=== PATIENT | male | born 1985 | race Caucasian/White ===

== ENCOUNTER 2022-11-21 20:51 | Emergency (ER) | payer OTHER, SELFPAY ==
[2022-11-21 21:01] VITALS: BP 128/79; PULSE 94; RESP 18; TEMP 36.3; O2SAT 97; BMI 47.0
--- NOTE | 2022-11-21 21:03 | DI.RAD.S_ITS ---
PROCEDURE: XR FINGER LT MIN 2V INDICATIONS: Left hand, 3rd digit injury TECHNIQUE: AP hand, 2 views of the 3rd finger(s) acquired. COMPARISON: None. FINDINGS: Bones: No fractures or dislocations. No suspicious bony lesions. Soft tissues: No suspicious soft tissue calcifications. IMPRESSION: No visualized acute fracture or dislocation. However, if clinical concern and/or pain persist, short interval imaging followup in 7-10 days is recommended, as occult injury cannot be definitively excluded. Dictated by: Nayeli Ann M.D. on 11/21/2022 at 22:18 Approved by: Nayeli Ann M.D. on 11/21/2022 at 22:18
--- NOTE | 2022-11-21 21:14 | ED.UPPEXIN ---
HPI - Extremity Injury (Upper) General Chief Complaint: Extremity Injury, Upper Stated Complaint: lt middle finger injury Time Seen by Provider: 11/21/22 21:01 Source: patient Mode of arrival: Ambulatory History of Present Illness HPI narrative: 37-year-old male without chronic medical history presents with significant other and a chief complaint of an accidental injury to the middle finger on his left hand just prior to arrival. He states he was rough-housing with his dog and does not know exactly what happened but felt pain and now has bruising and discomfort in his middle finger, mainly at the tip. He denies any numbness or tingling. He is otherwise well and free of complaint Related Data Allergies Allergy/AdvReac Type Severity Reaction Status Date / Time carbamazepine [From TEGRETOL] Allergy Mild RASH Unverified 09/03/17 12:21 hydrocodone [HYDROCODONE] Allergy Mild THROAT Unverified 09/03/17 12:21 SWELLS SHUT iodine Allergy Unknown Unverified 09/03/17 12:21 Penicillins Allergy Unknown Unverified 09/03/17 12:21 venom-honey bee Allergy Unknown Unverified 09/03/17 12:21 [bee venom (honey bee)] Review of Systems Review of Systems Narrative: GENERAL: Denies chills, fatigue, malaise, fever, sweats. HEENT: Denies sinus pain, ear pain, sore throat, difficulty swallowing, dizziness. RESPIRATORY: Denies dyspnea, cough, wheezing, hemoptysis, sputum. CARDIOVASCULAR: Denies chest pain, palpitations, orthopnea, edema, GASTROINTESTINAL: Denies nausea, vomiting, abdominal pain, diarrhea, constipation, melena. : Denies dysuria, frequency, incontinence, hematuria, urinary retention. MUSCULOSKELETAL: See HPI SKIN: Denies rash, skin lesions, or other NEUROLOGIC: Denies weakness, headache, numbness, change in speech, confusion, seizures, incoordination. PSYCHIATRIC: No concerning psychosocial issues. 12 point review of systems is negative except for those stated above Exam Narrative Exam Narrative: GEN: AOx3 and in mild distress EYES: Pupils are equal, round, and reactive to light and accommodation. Extraoccular muscles are intact bilaterally. There is no subconjunctival hemorrhage or exudate. CHEST: Lungs are clear to auscultation bilaterally and free of wheezes, rales, or rhonchi. Heart rate is regular rhythm, there are no murmurs, clicks, rubs, or gallops. There is no chest wall tenderness. ABD: Abdomen is soft and nontender. There is no guarding or rebound. Bowel sounds are normal in all 4 quadrants. There is no mass or organomegaly. EXT: Left middle finger with moderate swelling and ecchymosis, decreased range of motion secondary to pain, closed, isolated and neurovascularly intact SKIN: Warm, pink, and dry. No erythema or rash Initial Vital Signs Initial Vital Signs: Vital Signs Temperature 97.3 F L 11/21/22 21:01 Pulse Rate 94 H 11/21/22 21:01 Respiratory Rate 18 11/21/22 21:01 Blood Pressure 128/79 11/21/22 21:01 Pulse Oximetry 97 11/21/22 21:01 Oxygen Delivery Method Room Air 11/21/22 21:01 Course Orders Ordered: ED Orders 11/21/22 21:03 XR finger LT min 2V Stat Vital Signs Vital signs: Vital Signs - 8 hr 11/21/22 21:01 Temperature 97.3 F L Pulse Rate 94 H Respiratory Rate 18 Blood Pressure 128/79 Pulse Oximetry 97 Oxygen Delivery Method Room Air Discharge Plan Departure Patient Disposition: Home Clinical Impression: Sprain of finger of left hand Instructions: DI for Finger Sprain Activity Restrictions/Additional Instructions: *You have been diagnosed with [left middle finger sprain with questionable tendon injury. No obvious fracture or dislocation on imaging.] *What to do: *Please continue to take your regular medications as directed. [ ] New medication prescriptions sent to your pharmacy: [ ] [ ] New medication written as a paper prescription [ ] No new medications given *Please follow up with your primary care provider in 2-3 days, call for an appointment. Let them know you were seen in the Emergency Department and that we ask that you be seen in follow up. We will electronically transmit a record of today's note if your PCP is in our system * as we discussed I have included the contact information for Dr. Herrera, he is the orthopedist on-call and a specialist with hands. It would certainly be reasonable to follow-up with his office. Please call, let them know you were seen in emergency department and we would like you seen in follow-up *If you do not have a primary care provider please contact the [facility] Resource line at [phone]. They will ask some questions about your medical history and help get you set up with a doctor in the community. *Return to Emergency Department if you should have any new, worsening or concerning symptoms, such as [fever greater than 101 F, shaking chills, worsening pain, persistent vomiting or other bothersome symptoms] Referrals: Christiano Herrera MD [Physician] - Stand Alone Forms: Patient Portal/API
[2022-11-21 21:50] VITALS: BP 141/79; PULSE 86; RESP 18; O2SAT 97
== END 2022-11-21 21:50 | disposition home or self-care (01) ==
PROVIDERS: Emergency Provider Emergency Medicine
DX: S63.613A Unspecified sprain of left middle finger, initial encounter (principal); X58.XXXA Exposure to other specified factors, initial encounter
CPT/HCPCS: 29130; 73140; 99281; 99283

== ENCOUNTER 2023-03-30 10:56 | Emergency (ER) | payer OTHER, MEDICAID, SELFPAY ==
[2023-03-30 11:10] VITALS: BP 144/68; PULSE 91; RESP 18; TEMP 37.2; O2SAT 99; BMI 48.4
--- NOTE | 2023-03-30 11:15 | DI.RAD.S_ITS ---
PROCEDURE: XR CHEST 1V INDICATIONS: cough, SOB TECHNIQUE: One view of the chest was acquired. COMPARISON: None. FINDINGS: Surgical changes and devices: None. Lungs and pleura: Lungs are clear. No pleural effusions or pneumothorax. Mediastinum: Mediastinal contours appear normal. Heart size is normal. Bones and chest wall: No suspicious bony lesions. Overlying soft tissues appear unremarkable. IMPRESSION: Portable chest within normal limits for age. Dictated by: Mag Medeiros M.D. on 03/30/2023 at 11:53 Approved by: Mag Medeiros M.D. on 03/30/2023 at 11:53
--- NOTE | 2023-03-30 13:07 | ED_ITS ---
HPI - URI/Sore Throat <Kraig Olmos PA-C - Last Filed: 03/30/23 14:31> General Chief Complaint: Upper Respiratory Symptoms Stated Complaint: trouble breathing, light headed, upper resp Time Seen by Provider: 03/30/23 13:06 Source: patient Mode of arrival: Ambulatory History of Present Illness HPI Narrative: This is a 37-year-old male presents emergency department due to increased shortness of breath over the last 6 days. He states that he is had a congested nose but denies any fevers, nausea, vomiting. States he is also been coughing up some yellow phlegm. Patient states that he just started smoking about 2 months ago. Denies any chest pain Related Data Previous Rx's Medication Instructions Recorded nebulizer and compressor #1 ea 03/30/23 prednisone 20 mg tablet 20 mg PO BID 5 days #10 tabs 03/30/23 prednisone 20 mg tablet 40 mg (2 x 20 mg) PO DAILY #10 tabs 03/30/23 sodium chloride 3 % for 4 ml inhalation Q8H PRN secretions 03/30/23 nebulization (NebuSal) #120 mL Allergies Allergy/AdvReac Type Severity Reaction Status Date / Time carbamazepine [From TEGRETOL] Allergy Mild RASH Verified 03/30/23 11:14 hydrocodone [HYDROCODONE] Allergy Mild THROAT Verified 03/30/23 11:14 SWELLS SHUT iodine Allergy Unknown Verified 03/30/23 11:14 Penicillins Allergy Unknown Verified 03/30/23 11:14 venom-honey bee Allergy Unknown Verified 03/30/23 11:14 [bee venom (honey bee)] Review of Systems <Kraig Olmos PA-C - Last Filed: 03/30/23 14:31> Review of Systems Narrative: GENERAL: Denies chills, fatigue, malaise, fever, sweats. HEENT: Reports sinus congestion Denies sinus pain, ear pain, sore throat, difficulty swallowing, dizziness. RESPIRATORY: Reports shortness of breath, cough, denies wheezing, hemoptysis, . CARDIOVASCULAR: Denies chest pain, palpitations, orthopnea, edema, GASTROINTESTINAL: Denies nausea, vomiting, abdominal pain, diarrhea, constipation, melena. : Denies dysuria, frequency, incontinence, hematuria, urinary retention. MUSCULOSKELETAL: denies weakness, joint pain, or bony pain SKIN: Denies rash, skin lesions, or other NEUROLOGIC: Denies weakness, headache, numbness, change in speech, confusion, seizures, incoordination. PSYCHIATRIC: No concerning psychosocial issues. 12 point review of systems is negative except for those stated above Patient History <Kraig Olmos PA-C - Last Filed: 03/30/23 14:31> Social History Smoking Status: Current every day smoker Smoking Status: Current every day smoker tobacco type: cigarettes alcohol intake frequency: 0-2 drinks per day Substance Use Type: does not use Exam <Kraig Olmos PA-C - Last Filed: 03/30/23 14:31> Narrative Exam Narrative: GENERAL: Well-developed patient, in mild distress. HEAD: Atraumatic. Normocephalic. EYES: Pupils equal round and reactive. Extraocular motions intact. No scleral icterus. No injection or drainage. ENT: Nose without bleeding, purulent drainage. Throat without erythema, tonsillar hypertrophy or exudate. Airway patent. NECK: Trachea midline. Non tender CARDIOVASCULAR: Regular rate and rhythm without murmurs, gallops, or rubs. RESPIRATORY: Faint wheezing to bilateral lung augustin GASTROINTESTINAL: Abdomen soft, non-tender, nondistended. EXTREMITIES: No edema or joint tenderness. BACK: Nontender without deformity or crepitance. No flank tenderness. NEURO: AOx3. SKIN: No rash or erythema of visible areas Initial Vital Signs Initial Vital Signs: Vital Signs Temperature 98.9 F 03/30/23 11:10 Pulse Rate 91 H 03/30/23 11:10 Respiratory Rate 18 03/30/23 11:10 Blood Pressure 144/68 H 03/30/23 11:10 Pulse Oximetry 99 03/30/23 11:10 Oxygen Delivery Method Room Air 03/30/23 11:10 <Princess Ferguson DO - Last Filed: 03/31/23 07:33> Initial Vital Signs Initial Vital Signs: Vital Signs Temperature 98.9 F 03/30/23 11:10 Pulse Rate 91 H 03/30/23 11:10 Respiratory Rate 18 03/30/23 11:10 Blood Pressure 144/68 H 03/30/23 11:10 Pulse Oximetry 99 03/30/23 11:10 Oxygen Delivery Method Room Air 03/30/23 11:10 Course <Kraig Olmos PA-C - Last Filed: 03/30/23 14:31> Orders Ordered: ED Orders 03/30/23 11:15 XR chest 1V Stat 03/30/23 13:33 Covid-19 + FLU A/B + RSV - PCR Stat Vital Signs Vital signs: Vital Signs - 8 hr 03/30/23 11:10 03/30/23 13:28 Temperature 98.9 F Pulse Rate 91 H 88 Respiratory Rate 18 18 Blood Pressure 144/68 H 136/67 Pulse Oximetry 99 97 Oxygen Delivery Method Room Air Room Air <Princess Ferguson DO - Last Filed: 03/31/23 07:33> Orders Ordered: ED Orders 03/30/23 11:15 XR chest 1V Stat 03/30/23 13:33 Covid-19 + FLU A/B + RSV - PCR Stat Vital Signs Vital signs: Vital Signs - 8 hr 03/30/23 11:10 03/30/23 13:28 Temperature 98.9 F Pulse Rate 91 H 88 Respiratory Rate 18 18 Blood Pressure 144/68 H 136/67 Pulse Oximetry 99 97 Oxygen Delivery Method Room Air Room Air MDM - URI/Sore Throat <Kraig Olmos PA-C - Last Filed: 03/30/23 14:31> Lab Data Labs: Lab Results 03/30/23 Range/Units 13:33 SARS-CoV-2 (PCR) Positive H (Negative) Influenza A (RT-PCR) Flu a negative (NEGATIVE) Influenza B (RT-PCR) Flu b negative (NEGATIVE) RSV (PCR) Negative (Negative) Imaging Data Chest x-ray: Radiologist's Impression: [place] [address] XRay Report Signed Patient: Erasmo Vega MR#: [id number] : 1985 Acct:[id number] Age/Sex: 37 / M Date of Service: 03/30/23 Loc: ED Accession Number: [id number] Procedure: XR chest 1V Ordering Provider: Princess Ferguson D.O. PROCEDURE: XR CHEST 1V INDICATIONS: cough, SOB TECHNIQUE: One view of the chest was acquired. COMPARISON: None. FINDINGS: Surgical changes and devices: None. Lungs and pleura: Lungs are clear. No pleural effusions or pneumothorax. Mediastinum: Mediastinal contours appear normal. Heart size is normal. Bones and chest wall: No suspicious bony lesions. Overlying soft tissues appear unremarkable. IMPRESSION: Portable chest within normal limits for age. Dictated by: Mag Medeiros M.D. on 03/30/2023 at 11:53 Approved by: Mag Medeiros M.D. on 03/30/2023 at 11:53 MDM Narrative Medical decision making narrative: MDM * differential diagnosis includes but not limited to pneumonia, URI, asthma exacerbation * Prior records reviewed: Patient was seen here about 4 months ago for a sprained finger. No significant medical history. * My lab interpretation: None obtained * My imgaing interpretation: Chest x-ray unremarkable * Clinical Decision Rules/Scores evaluated: None * Independent discussions with: None ED Course: This is a 37-year-old male presents emergency department due to worsening shortness of breath over the last week. His chest x-ray was negative for pneumonia. COVID positive although maybe due to reportedly testing positive 3 weeks ago., flu, and RSV testing negative. Suspect asthma exacerbation maybe exacerbated due to a recent COVID infection. Recommended patient continue with the albuterol inhaler. We will add a course of steroids for further management. Shared Decision Making: Discussed plan with the patient who is comfortable with the plan. Social Considerations: None Disposition: Discharged home <Princess Ferguson DO - Last Filed: 03/31/23 07:33> Lab Data Labs: Lab Results 03/30/23 Range/Units 13:33 SARS-CoV-2 (PCR) Positive H (Negative) Influenza A (RT-PCR) Flu a negative (NEGATIVE) Influenza B (RT-PCR) Flu b negative (NEGATIVE) RSV (PCR) Negative (Negative) Discharge Plan Departure Patient Disposition: Home Clinical Impression: Asthma exacerbation Instructions: DI for Asthma -- Adult Activity Restrictions/Additional Instructions: Thank you for coming to the [facility] Emergency Department today. As we discussed your chest x-ray was negative for pneumonia or other lung abnormalities. I suspect this is a exacerbation of chronic asthma which may be due to a recent viral URI you may have had. Your influenza, and RSV testing were negative. COVID testing came back positive although they may this may be residual from your positive test 3 weeks ago. Please take this course of steroids in the should help with the breathing. I sent your medication to [facility] in [place]. I hope you feel better soon. Please follow up with your primary care provider within a week if your symptoms continue. If you do not have a primary care provider please contact the [facility] Resource line at [phone]. They will ask some questions about your medical history and help you get set up with a provider in the community. Prescriptions: New prednisone 20 mg tablet 20 mg PO BID 5 Days Qty: 10 0RF prednisone 20 mg tablet 40 mg PO DAILY Qty: 10 0RF sodium chloride [NebuSal] 3 % solution for nebulization 4 ml inhalation Q8H PRN (Reason: secretions) Qty: 120 0RF (DME) nebulizer and compressor Device See Rx Instructions .Route Qty: 1 0RF Rx Instructions: As directed Stand Alone Forms: Patient Portal/API ED Sign-out <Princess Ferguson, DO - Last Filed: 03/31/23 07:33> Cosign ED Attending Cosignature Attestation: I was immediately available in the department for consultation.
[2023-03-30 13:28] VITALS: BP 136/67; PULSE 88; RESP 18; O2SAT 97
[2023-03-30 14:22] LABS: Influenza A - CEPHEID Flu A NEGATIVE (NEGATIVE); Influenza B - CEPHEID Flu B NEGATIVE (NEGATIVE); Respiratory Syncytial Virus Negative (Negative)
[2023-03-30 14:23] LABS: COVID-19 CEPHEID 4-PLEX PCR POSITIVE (Negative)
[2023-03-30 14:35] VITALS: BP 134/64; PULSE 88; RESP 16; TEMP 36.8; O2SAT 97
== END 2023-03-30 14:36 | disposition home or self-care (01) ==
PROVIDERS: Emergency Provider Physician Assistant Medical
DX: J45.901 Unspecified asthma with (acute) exacerbation (principal); U07.1 COVID-19
CPT/HCPCS: 0241U; 71045; 99283